=== PATIENT | female | born 2000 | race Two or more races ===

== ENCOUNTER 2022-05-30 11:45 | Observation (INO) | payer MEDICAID ==
[2022-05-30] MEDS ORDERED: PREN-96 PO (13:54)
== END 2022-05-30 14:12 | disposition home or self-care (01) ==
LOC: LDRP 11:45 → UNDOADMOB 11:45 → LDRP 11:58
PROVIDERS: ADMIT Obstetrics & Gynecology Obstetrics; ATTEND Obstetrics & Gynecology Obstetrics
DX: O32.1XX0 Maternal care for breech presentation, not applicable or unspecified (principal); Z3A.37 37 weeks gestation of pregnancy
CPT/HCPCS: 59025; 76818; 81002; 94760; G0378

== ENCOUNTER 2022-06-05 15:00 | Observation (INO) | payer MEDICAID ==
[~2022-06-05 15:00] MED LIST: PREN-96 PO
== END 2022-06-05 17:32 | disposition home or self-care (01) ==
LOC: LDRP 15:00
PROVIDERS: ADMIT Obstetrics & Gynecology; ATTEND Obstetrics & Gynecology
DX: O62.9 Abnormality of forces of labor, unspecified (principal); O42.92 Full-term premature rupture of membranes, unspecified as to length of time between rupture and onset of labor; Z3A.38 38 weeks gestation of pregnancy
CPT/HCPCS: 59025; 76815; 81002; 84112; 94760; G0378; Q0114

== ENCOUNTER 2022-06-06 17:46 | Inpatient (IN) | payer MEDICAID ==
[~2022-06-06] VITALS: Ht 162.6 cm; Wt 69.4 kg
[2022-06-06] MEDS ORDERED: LACTATED RINGER'S 1,000 ML IV ONE ×2 (18:45→20:30)
[2022-06-06] MEDS ORDERED: SODIUM CITR/CITRIC ACID ORAL SOLN 30 ML PO ONE (18:45)
[2022-06-06 20:03] LABS: Urine Bacteria NONE SEEN /hpf (None Seen); Urine Blood Negative /uL (Negative); Urine Mucus FEW (None Seen); Urine Specific Gravity 1.022 (1.001-1.035); Urine WBC 1 /hpf (0 - 5)
[2022-06-06] MEDS: LACTATED RINGER'S 1,000 ML IV SCH (20:18)
[2022-06-06 20:23] LABS: Basophils # (auto) 0 10 ^3/uL (0-0.2); Basophils % (auto) 0.2 % (0.0-2.0); Eosinophils # (auto) 0.1 10 ^3/uL (0-0.8); Eosinophils % (auto) 0.8 % (0.0-7.0); Hematocrit 40.2 % (36.0-46.0); Hemoglobin 13.3 g/dL (12.2-16.2); Lymphocytes # (auto) 2.4 10 ^3/uL (0.4-5.4); Lymphocytes % (auto) 32.2 % (10.0-50.0); Mean Corpuscular Hemoglobin 33.1 pg (28.0-32.0); Mean Corpuscular Hgb Conc. 33.2 g/dL (32.0-36.0); Mean Corpuscular Volume 99.6 fL (80.0-100.0); Monocytes # (auto) 0.4 10 ^3/uL (0-1.3); Neutrophils # (auto) 4.5 10 ^3/uL (1.6-8.6); Neutrophils % (auto) 60.8 % (37.0-80.0); Nucleated Red Blood Cells % 0.1 %; Red Blood Cells 4.03 10^6/uL (4.0-5.20); White Blood Cell 7.3 10^3/uL (4.4-10.8)
[2022-06-06 20:24] LABS: Amphetamine Screen, Urine NEGATIVE (NEGATIVE); Barbiturate Scree,Urine NEGATIVE (NEGATIVE); Benzodiazephine Screen, Urine NEGATIVE (NEGATIVE); Cannabinoid Screen, Urine NEGATIVE (NEGATIVE); Cocaine Screen, Urine NEGATIVE (NEGATIVE); Opiate Scree,Urine NEGATIVE (NEGATIVE); Phencyclidine Screen, Urine NEGATIVE (NEGATIVE)
[2022-06-06 20:41] LABS: Albumin 2.6 g/dL (3.4-5.0); Calcium 8.4 mg/dL (8.5-10.1); Potassium 3.7 mmol/L (3.5-5.1)
[2022-06-06 20:44] LABS: BUN/Creatinine Ratio 25.6; Bilirubin, Total 0.2 mg/dL (0.2-1.0); Total Protein 6.8 g/dL (6.4-8.2)
[2022-06-06] MEDS ORDERED: OXYTOCIN 10UNIT/ML 1ML VIAL ONE (20:44)
[2022-06-06] MEDS ORDERED: MORPHINE SULF PF 5 MG/10 ML VIAL ONE (20:44)
[2022-06-06 20:48] LABS: INR 0.9 (0.9-1.15); Partial Thromboplastin Time 28.1 sec (24.6-33.4)
[2022-06-06] MEDS ORDERED: NS/OXYTOCIN 20UNITS 1,000 ML IV SCH (21:00)
[2022-06-06] MEDS ORDERED: ceFAZolin 1GM/50ML 50 ML IV SCH ×2 (21:00→22:00)
[2022-06-06] MEDS ORDERED: ONDANSETRON HCL 4 MG/2 ML VIAL IV PRN ×3 (21:00→22:45)
[2022-06-06] MEDS ORDERED: LIDOCAINE 2%HCL (LOCAL ANESTH.) INJ 10ml MDV ONE (21:30)
[2022-06-06] MEDS ORDERED: FAMOTIDINE (10MG/ML) 2ML VL IV ONE (22:12)
[2022-06-06] MEDS ORDERED: DexAMETHasone SOD PHOS 10MG/1ML VIAL INJ IV PRN (22:45)
[2022-06-06] MEDS ORDERED: NALOXONE HCL 0.4 MG/ML VIAL IV PRN (22:45)
[2022-06-06] MEDS ORDERED: KETOROLAC TROMETH 30 MG/ML 1ML VIAL IV PRN (22:45)
[2022-06-06] MEDS ORDERED: diphenhdrAMINE HCL 50 MG/1 ML VL IV PRN (22:45)
[2022-06-06 23:35] VITALS: BP 116/71
[2022-06-06 23:45] VITALS: BP 113/68
[2022-06-07] VITALS (27 sets, daily range): BP systolic 86–124; BP diastolic 51–84
[2022-06-07] MEDS: LACTATED RINGER'S 1,000 ML IV SCH (02:45)
[2022-06-07] MEDS: ceFAZolin 1GM/50ML 50 ML IV SCH ×3 (03:33→20:20)
[2022-06-07 06:46] LABS: Basophils # (auto) 0 10 ^3/uL (0-0.2); Basophils % (auto) 0.1 % (0.0-2.0); Eosinophils # (auto) 0 10 ^3/uL (0-0.8); Hematocrit 36.6 % (36.0-46.0); Hemoglobin 12.2 g/dL (12.2-16.2); Lymphocytes # (auto) 1.1 10 ^3/uL (0.4-5.4); Lymphocytes % (auto) 7.4 % (10.0-50.0); Mean Corpuscular Hemoglobin 33.2 pg (28.0-32.0); Mean Corpuscular Hgb Conc. 33.5 g/dL (32.0-36.0); Mean Corpuscular Volume 99.2 fL (80.0-100.0); Monocytes # (auto) 0.4 10 ^3/uL (0-1.3); Monocytes % (auto) 2.8 % (0.0-12.0); Neutrophils % (auto) 89.7 % (37.0-80.0); Red Blood Cells 3.68 10^6/uL (4.0-5.20); Red Cell Distribution Width 13.1 % (11.8-14.3); White Blood Cell 14.5 10^3/uL (4.4-10.8)
[2022-06-07] MEDS ORDERED: DOCU-94 PO (07:16)
[2022-06-07] MEDS ORDERED: HYDR-4902 PO (07:16)
[2022-06-07] MEDS ORDERED: IBUP800T27 PO (07:16)
[2022-06-07] MEDS: FERROUS SULFATE 325mg EC TAB PO SCH ×2 (09:47→22:15)
[2022-06-07] MEDS: DOCUSATE SOD 100 MG CAP PO SCH ×2 (09:47→22:15)
[2022-06-07] MEDS: SIMETHICONE 80 MG CHEWABLE TABLET PO SCH ×3 (12:15→22:16)
[2022-06-07] MEDS: IBUPROFEN 800 MG TAB PO PRN (13:58)
[2022-06-07] MEDS: HYDROcodone-ACET 5/325MG TAB PO PRN (20:21)
[2022-06-08 03:00] VITALS: BP 106/54
[2022-06-08] MEDS: IBUPROFEN 800 MG TAB PO PRN ×3 (03:17→19:21)
[2022-06-08] MEDS: SIMETHICONE 80 MG CHEWABLE TABLET PO SCH ×4 (05:55→21:46)
[2022-06-08 06:06] LABS: RPR Non Reactive (Non Reactive)
[2022-06-08 07:00] VITALS: BP 98/65
[2022-06-08] MEDS: HYDROcodone-ACET 5/325MG TAB PO PRN ×3 (07:10→21:46)
[2022-06-08] MEDS: FERROUS SULFATE 325mg EC TAB PO SCH ×2 (10:34→21:45)
[2022-06-08] MEDS: DOCUSATE SOD 100 MG CAP PO SCH ×2 (10:35→21:46)
[2022-06-08 10:51] VITALS: BP 104/60
[2022-06-08 15:00] VITALS: BP 107/73
[2022-06-08 19:00] VITALS: BP 117/74
[2022-06-08 23:20] VITALS: BP 105/66
[2022-06-09 03:20] VITALS: BP 101/56
[2022-06-09] MEDS: IBUPROFEN 800 MG TAB PO PRN (03:55)
[2022-06-09] MEDS: SIMETHICONE 80 MG CHEWABLE TABLET PO SCH (06:05)
[2022-06-09 07:00] VITALS: BP 100/55
[2022-06-09] MEDS: FERROUS SULFATE 325mg EC TAB PO SCH (10:02)
[2022-06-09] MEDS: DOCUSATE SOD 100 MG CAP PO SCH (10:02)
[2022-06-09] MEDS: HYDROcodone-ACET 5/325MG TAB PO PRN (10:24)
[2022-06-09 11:00] VITALS: BP 115/74
== END 2022-06-09 12:06 | disposition home or self-care (01) | DRG 540 ==
LOC: LDRP 17:46 → OBSVTOIN 18:19 → LDRP 22:31
PROVIDERS: ADMIT Obstetrics & Gynecology; ATTEND Obstetrics & Gynecology
PROC: 10D00Z1 Extraction of Products of Conception, Low, Open Approach (ICD-10-PCS; principal; 2022-06-06 21:04)
DX: O32.1XX0 Maternal care for breech presentation, not applicable or unspecified (principal); Z20.822 Contact with and (suspected) exposure to COVID-19; Z37.0 Single live birth; Z3A.38 38 weeks gestation of pregnancy
CPT/HCPCS: 36415; 59025; 76815; 80053; 80307; 81001; 81002; 84112; 85025; 85610; 85730; 86592; 86850; 86900; 86901; 94760; 94762; 96360; 96361; 96365; 96366; G0378; J0690; J2001; J3490